=== PATIENT | female | born 2005 | race Caucasian/White ===

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

== ENCOUNTER 2025-07-14 17:41 | Emergency (ER) | payer OTHER, BC ==
[2025-07-14] MEDS ORDERED: ISOVUE-370 76% 100 ML VIAL As Ordered ONE (18:01)
[2025-07-14 18:19] LABS: BASO # 0.0 10^3/uL (0.0-0.2); BASO % 0.4 % (0.0-1.0); EOS # 0.2 10^3/uL (0.0-0.5); EOS % 1.6 % (0.0-3.0); LYMPH # 3.1 10^3/uL (1.5-5.0); LYMPH % 33.1 % (24.0-44.0); MONO # 0.6 10^3/uL (0.0-0.8); MONO % 6.0 % (2.0-8.0); NEUTROPHILS # 5.5 10^3/uL (1.5-8.5); NEUTROPHILS % 58.5 % (36.0-66.0); PLATELET COUNT, AUTOMATED 254 10^3/uL (150-450)
[2025-07-14 18:30] VITALS: TEMP 98.9
[2025-07-14 18:33] LABS: HCG, SERUM QUALITATIVE NEGATIVE (NEGATIVE)
[2025-07-14 18:34] LABS: ALT/SGPT 22 U/L (7.0-40); AST/SGOT 20 U/L (<34); CALCIUM LEVEL 9.1 MG/DL (8.5-10.1); CARBON DIOXIDE LEVEL 20 MMOL/L (20-31); CHLORIDE LEVEL 106 MMOL/L (98-107); CREATININE FOR GFR 0.78 MG/DL (0.55-1.30); GLOMERULAR FILTRATION RATE > 90.0 (>60); POTASSIUM SERUM 3.3 MMOL/L (3.5-5.1); SODIUM LEVEL 142 MMOL/L (136-145)
[2025-07-14] MEDS: LIDOCAINE W/EPINEPHrine 1% 20 ML VIAL SC ONE (19:10)
[2025-07-14] MEDS ORDERED: LIDOCAINE W/EPINEPHrine 1% 20 ML VIAL As Ordered ONE (19:10)
[2025-07-14 19:13] LABS: INR 0.95
[2025-07-14] MEDS: POTASSIUM CHLORIDE 10MEQ SR TABLET PO ONE (19:50)
[2025-07-14] MEDS: MORPHINE 4 MG/ML 1 ML VIAL IV ONE (22:26)
[2025-07-14 23:00] VITALS: BP 109/67
[2025-07-14 23:01] VITALS: O2SAT 98
== END 2025-07-14 23:20 | disposition home or self-care (01) ==
LOC: EDBD 17:41 → M ED 17:41
DX: S06.0XAA Concussion with loss of consciousness status unknown, initial encounter (principal); S01.01XA Laceration without foreign body of scalp, initial encounter; V44.1XXA Car passenger injured in collision with heavy transport vehicle or bus in nontraffic accident, initial encounter; Y92.9 Unspecified place or not applicable; Y93.9 Activity, unspecified; Y99.9 Unspecified external cause status
CPT/HCPCS: 12002; 70450; 71260; 72125; 72128; 72131; 74177; 80047; 80048; 80076; 84703; 85025; 85610; 85730; 86850; 86900; 86901; 93041; 94760; 96374; 99291; Q9967